=== PATIENT | female | born 1965 | race Caucasian/White ===

== ENCOUNTER 2020-02-26 11:07 | Day surgery (SDC) | payer OTHER, SELFPAY ==
[2020-02-26] VITALS (9 sets, daily range): BP systolic 120–145; BP diastolic 60–81; PULSE 70–82; RESP 16–18; TEMP 36.7; O2SAT 96–100
[2020-02-26 10:13] LABS: MANUAL DIFF FLAG NO
[2020-02-26 10:17] LABS: Basophils Absolute Auto 0.1 X10*3/uL (0.0-0.2); Basophils Percent Auto 1.1 % (0-2); Eosinophils Absolute Auto 0.3 X10*3/uL (0.0-0.4); Eosinophils Percent Auto 4.5 % (0-4); Hematocrit 39.1 % (37-47); Hemoglobin 12.8 g/dl (12.0-16.0); Imm Gran Abs Auto 0.01 X10*3/uL (0.00-0.03); Imm Gran Pct Auto 0.2 % (0.0-0.4); Lymphocytes Absolute Auto 1.4 X10*3/uL (1.2-4.9); Lymphocytes Percent Auto 24.9 % (20-40); Mean Corpuscular HGB Conc 32.7 g/dl (31.0-35.0); Mean Corpuscular Hemoglobin 29.6 pg (27.0-33.0); Mean Corpuscular Volume 90.5 fL (80-98); Mean Platelet Volume 9.1 fL (9.4-12.3); Monocytes Absolute Auto 0.4 X10*3/uL (0.1-1.2); Monocytes Percent Auto 6.6 % (2-11); Neutrophils Absolute Auto 3.5 X10*3/uL (2.0-8.3); Neutrophils Percent Auto 62.7 % (45-73); Platelet Count 267 X10*3/uL (160-400); Red Blood Count 4.32 X10*6/uL (4.20-5.50); Red Cell Distribution Width 13.1 % (11.0-16.0); White Blood Count 5.6 X10*3/uL (4.8-10.8)
[2020-02-26 10:27] LABS: INTERNATIONAL NORM RATIO 0.9 (0.9-1.1); Prothrombin Time 11.2 SEC (10.8-13.0)
[2020-02-26 10:30] LABS: Partial Thromboplastin Time 30.3 SEC (24.1-38.0)
--- NOTE | 2020-02-26 11:00 | FL_ITS ---
EXAMINATION: XR LUMBAR PUNCTURE CLINICAL INFORMATION: Fluoroscopy-guided lumbar puncture. COMPARISON: None. TECHNIQUE: Following explaining fluoroscopy-guided lumbar puncture procedure, benefits and risks, a written consent was obtained. Patient was placed prone on the fluoroscopy table and the L4-L5 disc level is marked on the skin. The marked site was cleaned and draped in the usual sterile manner. 1% lidocaine was injected at the puncture site. A 22-gauge needle was advanced from the skin intrathecally at the L4-L5 disc level. There is very slow CSF flow seen, hence this level was abandoned and needle with stylet was then removed. 1% lidocaine was administered at the L3-L4 disc level and a 20-gauge spinal needle was advanced from a left-side approach intrathecally. After observing CSF return, patient was quickly placed in the left lateral view and opening CSF pressure was obtained. CSF was collected in 4 test tubes as recommended by the referring physician. Postprocedure stylet was reintroduced and needle withdrawn. Complete hemostasis was achieved at the puncture site. Sterile Band-Aid dressing applied at the puncture site. Patient tolerated the procedure extremely well. Initially patient was very nervous for which Ativan was prescribed by the referring physician. FINDINGS: On the AP and lateral views of the lumbar spine, the vertebral heights and alignment were maintained. The disc spaces were maintained. Initial failed attempt of lumbar puncture at L4-L5; successful lumbar puncture at the L3-L4 disc level was obtained. The opening CSF pressure was 7. Approximately 10 mL of CSF was collected in 4 test tubes. FLUOROSCOPY TIME: 1.4 minutes. DOSE AREA PRODUCT: 8.74 uGy-m2 (microgray-meter squared). FL/FL guided lumbar puncture LP IMPRESSION: Successful fluoroscopy-guided lumbar puncture performed without immediate complications. CSF collected was sent to lab as requested by the physician.
[2020-02-26 12:11] LABS: Glucose, Whole Blood 138 mg/dL (60-115)
[2020-02-26 12:16] LABS: Glucose, Whole Blood 138 mg/dL (60-115)
--- NOTE | 2020-02-26 13:52 | PC.NURSE ---
1342- PT CHECKED OWN BLOOD SUGAR WITH OWN SUPPLIES AND IT IS 176. LUNCH ORDERED AND PT WILL COVER WITH OWN INSULIN ONCE MEAL DELIVERED
[2020-02-26 14:05] LABS: CSF Appearance Clear, Colorless; CSF Tube # 3
--- NOTE | 2020-02-26 14:10 | PC.NURSE ---
1406 PT GAVE SELF OWN INSULIN 4 UNITS RLQ OF ABD, START EATING MEAL REMAINS FLAT SUPINE 1 PILLOW
[2020-02-26 14:20] LABS: Glucose CSF 91 mg/dL; Total Protein CSF 38.2 mg/dL (15-45)
[2020-02-26 14:48] LABS: Appearance CSF CLEAR; Color CSF COLORLESS
[2020-02-26 14:49] LABS: CSF Tube # 4; CSF Volume 2.5 ML; Red Blood Cell CSF 13 MM*3; White Blood Cell CSF 0 MM*3
== END 2020-02-26 16:19 | disposition home or self-care (01) ==
LOC: HO.SSS 11:07
PROVIDERS: Radiology Diagnostic Radiology; PCP Nurse Practitioner Family; Visit Provider Psychiatry & Neurology Neurology
PROC: 009U3ZZ Drainage of Spinal Canal, Percutaneous Approach (ICD-10-PCS; CPT 62270; principal; 2020-02-26 11:00)
DX: F03.90 Unspecified dementia, unspecified severity, without behavioral disturbance, psychotic disturbance, mood disturbance, and anxiety (principal); E11.9 Type 2 diabetes mellitus without complications; Z79.4 Long term (current) use of insulin
CPT/HCPCS: 36415; 62328; 82172; 82542; 82945; 82947; 84157; 85025; 85610; 85730; 86255; 89051

== ENCOUNTER 2023-02-20 15:41 | Outpatient (REF) | payer OTHER, SELFPAY ==
[2023-02-20 15:52] LABS: MANUAL DIFF FLAG NO
[2023-02-20 17:40] LABS: Basophils Absolute Auto 0.1 X10*3/uL (0.0-0.2); Basophils Percent Auto 0.7 % (0-2); Eosinophils Absolute Auto 0.4 X10*3/uL (0.0-0.4); Eosinophils Percent Auto 4.9 % (0-4); Hematocrit 38.5 % (37.0-47.0); Hemoglobin 12.6 g/dl (12.0-16.0); Imm Gran Abs Auto 0.02 X10*3/uL (0.00-0.03); Imm Gran Pct Auto 0.2 % (0.0-0.4); Lymphocytes Absolute Auto 1.6 X10*3/uL (1.2-4.9); Lymphocytes Percent Auto 19.9 % (20-40); Mean Corpuscular HGB Conc 32.7 g/dl (31.0-35.0); Mean Corpuscular Hemoglobin 29.4 pg (27.0-33.0); Mean Platelet Volume 10.1 fL (9.4-12.3); Monocytes Absolute Auto 0.4 X10*3/uL (0.1-1.2); Monocytes Percent Auto 5.4 % (2-11); Neutrophils Absolute Auto 5.5 x10*3/uL (2.0-8.3); Neutrophils Percent Auto 68.9 % (45-73); Platelet Count 187 X10*3/uL (160-400); Red Blood Count 4.28 X10*6/uL (4.20-5.50); Red Cell Distribution Width 12.4 % (11.0-16.0)
[2023-02-20 17:55] LABS: Anion Gap 12 (12-20); Blood Urea Nitrogen 15 mg/dL (9-16); Calcium 9.5 mg/dL (8.4-10.2); Carbon Dioxide 29 mmol/L (22-29); Chloride 105 mmol/L (96-108); Estimated Glomerular Filt Rate 54; Glucose Random 145 mg/dL (60-115); Potassium 4.8 mmol/L (3.3-5.1); Sodium 141 mmol/L (135-145)
[2023-02-20 18:06] LABS: Thyroid Stimulating Hormone 2.05 uIU/mL (0.32-4.0)
== END 2023-02-20 15:42 | disposition home or self-care (01) ==
LOC: HO.LAB 15:41
PROVIDERS: PCP Internal Medicine; Visit Provider Psychiatry & Neurology Neurology
DX: G31.84 Mild cognitive impairment of uncertain or unknown etiology (principal)
CPT/HCPCS: 36415; 80048; 84443; 85025

== ENCOUNTER 2024-12-04 15:38 | Outpatient (AMB) | payer OTHER, SELFPAY ==
--- OUTSIDE RECORDS SUMMARY | 2023-08-11 10:40 | XMS_ITS ---
Author Organization [employer] Address [address] [place] [address] Care Team Providers Care Acid Pump Operator Name Role Phone COLTEN Don, CHAVO Primary Care Provider Nelda Sweeney [phone] REASON FOR VISIT ULTRA - FIBROIDS ? ENLARGING Encounters Encounter Location Date Provider Diagnosis [facility] [employer] [facility] [address] [place] [address] 08/11/2023 Nelda Post Plan Of Treatment No Information Progress Notes * ERIC OTOOLEDOB:1965 (59 yo F)Acc No.[id number]:08/11/2023 PROGRESS NOTES Patient: ERIC MIRANDA Appointment Provider: Randy Post M.D. :1965 A ge:58 Y S ex:Female Date:08/11/2023 [facility] [facility] Pcp:CHAVO ABEL M.D. Subjective: * Chief Complaints: * 1 . ULTRA - FIBROIDS ? ENLARGING. * Medical History: Objective: * Vitals: Assessment: Plan: * Treatment: * Images: Billing Information: * Visit Code: * Procedure Codes: * Electronic signature of Rolly Post MD on 12/04/2024 at 05:53 PM EDT Sign off status: Pending * Appointment Provider: Randy Post M.D. Date: 08/11/2023 Generated for Sohan hinojosa/Rigo/Tyler on: 0 12/04/2024 05:53 PM EDT
--- OUTSIDE RECORDS SUMMARY | 2023-10-02 11:00 | XMS_ITS ---
Author Organization [employer] [facility] Address [address] [address] Care Team Providers Care Public Speaking Teacher Name Role Phone CHAVO ABEL M.D. 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 :1965 A ge:58 Y S ex:Female Date:10/02/2023 [address] [facility] Pcp:CHAVO ABEL M.D. Subjective: * Chief Complaints: * 1 . Annual AUTOMOBILE BRAKES BONDER Physical. * Medical History: D iabetes Type I, Other specified abnormal uterine and vaginal bleeding, Menopausal and female climacteric states, Unspecified dementia without behavioral disturbance, Other specified irregular menstruation, Leiomyoma of uterus, unspecified, Unspecified lump in breast, Inconclusive mammogram, Human metapneumovirus pneumonia, Hormone replacement therapy, Postmenopausal atrophic vaginitis, Unspecified dementia without behavioral disturbance, Mammographic extreme density, bilateral breasts. * Supervisor Wet Pour History: G ravida/ Para 1 /. S exual activity c urrently sexually active. L ast Pap Smear: NIL, NEG HPV, 10/03/16 NIL, NEG HPV, 2014, neg. M ammogram: > 75% density, 09/20/21 > 75% density, 08/04/20 > 75% density, 2014. L MP and menses 2 018. B irth Control: n one. C olonoscopy n o. B one Density: (Pending Report) 2014. * OB History: T otal pregnancies 1 . T otal living children 1 . C -section(s) 1 . * Allergies: S ulfa Antibiotics: Allergy. Objective: * Vitals: Assessment: Plan: * Treatment: * Images: Billing Information: * Visit Code: * Procedure Codes: * Electronic signature of Rolly Post MD on 12/04/2024 at 05:53 PM EDT Sign off status: Pending * Appointment Provider: Randy Post M.D. Date: 0 10/02/2023 Generated for Sohan hinojosa/Rigo/Marioitting on: 12/04/2024 05:53 PM EDT
--- OUTSIDE RECORDS SUMMARY | 2024-08-01 10:40 | XMS_ITS ---
Author Organization [employer] [facility] Address [address] [address] Care Team Providers Care Drywall Sprayer Name Role Phone CHAVO ABEL M.D. 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 :1965 A ge:59 Y S ex:Female Date:08/01/2024 [address] Pcp:CHAVO ABEL M.D. Subjective: * Chief Complaints: * 1 . 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 * Medical History: Objective: * Vitals: Assessment: Plan: * Treatment: * Images: Billing Information: * Visit Code: * Procedure Codes: * Electronic signature of Rolly Post MD on 12/04/2024 at 05:53 PM EDT Sign off status: Pending * Appointment Provider: Randy Post M.D. Date: 0 08/01/2024 Generated for Printi ashish/Faxing/eTransmitting on: 0 12/04/2024 05:53 PM EDT
--- NOTE | 2024-12-04 15:54 | MHC.OFFVIS ---
Intake Visit Reasons: F/u Allergies No Known Allergies Allergy (Verified 02/25/20 10:26) Medication List - Last Reconciled 12/04/24 by Alex Linares MD alendronate 70 mg PO QWEEK alprazolam 0.5 mg PO BEDTIME PRN atorvastatin 40 mg PO DAILY calcium carbonate 600 mg PO BID duloxetine 20 mg PO ONCE estradiol 0.01%(0.1mg/gram) 1 g vaginal 2XW folic acid 1 mg PO DAILY hydroxychloroquine 200 mg PO DAILY insulin aspart U-100 (Novolog FlexPen U-100 Insulin aspart) 2 - 4 units subcut TID methenamine hippurate 1 g PO BID HPI Comments Details: No Sz. Memory is pretty good and appears stable. Having trouble falling asleep and staying asleep for 3-4 yrs, worse lately. Wakes up tired. She had 14 years of formal education, earning an associates degree and also got certification in [employer]. She worked in [employer] for 28 years. 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 She has not been driving for last few years after getting lost while driving home. She is having lab work done later today. ?Was diagnosed with Sjogren's disease. finds everything done at home properly and on time. Keeps getting UTI frequently and apparently has trouble clearing it. Occasional wakes up with no energy and stays in bed for 2-3 days. Some days she is able to do most things. Some days she feels great and can function well. Has smell and taste problems off and on. Executive function is still not totally normal. She is multitasking better. She had two syncopal episodes, cause unknown, and had hip fracture. Now has her appetite back. She saw Dr. Abreu in [place] as part of workup for dementia [facility] and the [place] encephalopathy panel for autoimmune disease. 2023 Brain PET was negative for amyloid. She had hip fracture of the femur and a hip dislocation and had surgery at [facility] and was transferred to rehabilitation. She is unable to work and is not going to be able to return to work. Lot of anxiety and depression. She has a history of type 1 diabetes since age 22, not very well controlled in spite of an insulin pump, lupus for 5 years in her 20s, now in remission and couple of seizures related to hypoglycemia. 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 She's having trouble falling asleep and if she doesn't take the trazodone she cannot sleep to 3 AM. When she does take the trazodone at 9:00 she is very groggy in the morning. She feels that her body is very achy. She's become more accident prone. Her depression is under control. She feels that she is not as clear headed at times. On one occasion in Nov 2018, she could not remember how to get home from a side road and took 15 minutes to get back. [facility] Medical History (Updated 12/04/24 @ 16:09 by Alex Linares MD) Sjogren's disease Seizure Systemic lupus erythematosus (SLE) in remission Depression Diabetes mellitus MCI (mild cognitive impairment) with memory loss Social History (Updated 09/10/24 @ 15:14 by Rachele Valdez MA) Alcohol intake: never Patient Tobacco Use Status: Never used Tobacco Review of Systems Const Details: Sleep:? Difficulty getting to sleep?admits.? Difficulty maintaining sleep?denies?.? Urge to move legs?admits.? Teeth grinding?admits.? Shouting or Kicking during sleep?denies.? Abnormal behavior during sleep?denies.? Excessive sleep?denies.? Snoring?denies.? Daytime sleepiness?denies.? ?? General/Constitutional:? Change in appetite?denies.? Chills?denies.? Fatigue?admits.? Fever?denies.? Weight gain?denies.? Weight loss?denies.? ?? Respiratory:? Shortness of breath?denies.? Chest pain?denies.? Cough?denies.? ?? Cardiovascular:? Chest pain at rest?denies.? Chest pain with exertion?denies.? Claudication?denies.? Dizziness?denies.? Fluid accumulation in the legs?denies.? Irregular heartbeat?denies.? Palpitations?denies.? ?? Gastrointestinal:? Abdominal pain?denies.? Constipation?denies.? Diarrhea?denies.? Difficulty swallowing?denies.? Heartburn?denies.? Nausea?denies.? Rectal bleeding?denies.? ?? Genitourinary:? Frequent urination?denies.? Urgency?denies.? Incontinence?denies.? Erectile Dysfunction?denies.? ?? Musculoskeletal:? Neck pain?denies.? Back pain?denies.? Muscle aches?admits.? Painful joints?admits.? Sciatica?denies.? Weakness?admits.? ?? Neurologic:? Difficulty swallowing?denies.? Balance difficulty?denies.? Coordination?normal.? Difficulty speaking?denies.? Dizziness?denies.? Fainting?denies.? Gait abnormality?denies.? Headache?denies.? Loss of strength?denies.? Loss of use of extremity?denies.? Low back pain?denies.? Memory loss?admits. Confusion.? Seizures?denies.? Tics?denies.? Tingling/Numbness?denies.? Transient loss of vision?denies.? Tremor?denies.? ?? Psychiatric:? Anxiety?denies.? Auditory/visual hallucinations?denies.? Delusions?denies.? Depressed mood?admits.? Stressors?admits.? Substance abuse?denies.? Suicidal thoughts?denies.?? Physical Exam Neuro Other: Neurological: ? Abnormal neurological findings:?MMSE 30/30, MoCA 24/30 with MIS 10/15, Functional Activities Questionnaire 10.? Mental Status:?alert and oriented X 3,?Normal attention, orientation, memory and affect.? Cranial Nerves:?Pupils are equal, round and reactive to light. Fundoscopy shows normal disc bilaterally. External occular muscles are intact. Visual feng are full, no ptosis. Face is symmetrical, no facial weakness or droop. Facial sensations are normal. Tongue protrudes in midline. Palate elevates symmetrically. Shoulder shrugging is normal..? Motor Examination:?Normal muscle tone, bulk and strength,?No atrophy or fasciculations,?No drift of the extended upper extremities,?Deep tendon reflexes are 2+?,?Plantars are flexor?.? Straight Leg Raising:?90 degrees.? Sensory Exam:?Normal light touch, temperature, pinprick, vibration and joint-position sensations?,?Rhomberg sign is absent.? Coordination:?no ataxia,?no titubation,?ytpltt-ua-bnbb, stbk-aqyh-opno test and rapid alternating movements were normal.? Gait Exam:?Within normal limits.? Cerebellar Signs:?Aknftr-vx-plko and zsvc-ky-pije is normal,?no dysdiadochokinesia?.? Extrapyramidal System:?No tremor, rigidity with normal facial expressions,?No bradykinesia, no bradyphrenia. Normal arm swing and posture. No propulsion or retropulsion.? Speech:?Normal,?no dysphasia or dysarthria..? Mini Mental Status Exam: ? Level of Consciousness:?Alert.? Orientation:?Knows correct year, month, date, day and season,?Knows correct city, county and state. Knows correct location and floor.? Registration:?Able to register 3 objects.? Attention:?Serial 7's performed accurately.? Recall:?Able to recall 3 out of 3 objects.? Language:?Normal spontaneous speech, fluency, repetition,naming, comprehension, reading and writing.? Total Score:?30/30.? Assessment & Plan Assessment & Plan (1) MCI (mild cognitive impairment) with memory loss: Comment: 05/08/19 EEG-mild diffuse slowing 7.5-8 HZ. Labs normal. 02/26/24 Amyloid PET shows no significant amyloid deposit 05/19/19 MRI: Mild generalized cerebral and cerebellar volume loss. Neuropsych testing consistent with MCI with a large component of anxiety and depression that could be impacting her abilities greatly. Had side effects of Donepezil, Memantine, A1c is 7.2 09/2023 MRI reviewed: Mild volume loss . Bilateral deep white matter posterion white matter hyperintensities. 2019 [place] encephalopathy panel on CSF was normal ABSP2Y8 BETA AMYLOID 42/40 RATIO AND APOE PANEL, CSF ABETA 42 2398 pg/mL ABETA 40 40197 pg/mL ABETA 42/40 RATIO 0.20 [L] > or = 0.25 Low Risk 0.21 to 0.24 Medium Risk < or = 0.20 High Risk Code(s): G31.84 - Mild cognitive impairment of uncertain or unknown etiology Category: Medical (2) Seizure: Comment: mostly related to hypoglycemia. No recurrence Code(s): R56.9 - Unspecified convulsions Category: Medical (3) Depression: Code(s): F32.A - Depression, unspecified Category: Medical Plan Continue current meds. Try Melatonin 4-6 mg Coding Level of Care Code Est Pt Level 4 (40312) Diagnoses MCI (mild cognitive impairment) with memory loss G31.84 Seizure R56.9 Depression F32.A
--- OUTSIDE RECORDS SUMMARY | 2024-12-04 17:53 | XMS_ITS | Patient Health Record ---
Author Organization [facility] Address [address] [address] Care Team Providers Care Spanish Medical Interpreter Name Role Phone CHAVO ABEL M.D. Primary Care Provider Nelda Sweeney Unavailable [phone] Allergies Allergen (clinical drug ingredient) Drug/Non Drug Allergy documented on EMR Reaction Allergy Type Onset Date Status Substance with sulfonamide structure and antibacterial mechanism of action (substance) Sulfa Antibiotics Unknown Drug Allergy Active Reason For Referral No Information Medications Medication SIG (Take, Route, Frequency, Duration) Notes Start Date End Date Status Progesterone 100 MG TAKE 2 CAPSULES BY M OUTH AT BEDTIME; Duration: 90 Active Tolterodine Tartrate ER 4 MG 1 capsule Orally Once a day; Duration: 30 day(s) Active Methenamine Hippurate 1 GM 1 tablet Oral ly Twice a day; Duration: 10 day(s) Active Alendronate Sodium 70 MG 1 tablet 30 min utes before the first food, beverage or medicine of the day with plain water Orally; Duration: 30 day(s) Active Estradiol 0.05 MG/24HR APPLY 1 PATCH TO SKIN TWICE A WEEK FOR 90 DAYS; Duration: 84 Active Alive Once Daily Womens 50+ - as directed Orally Active Vagifem 10 MCG 1 tablet Vaginal Thr ee times a Week; Duration: 90 days Active Prometrium 100 MG 1 capsule at bedtime Orally TWICE DAILY; Duration: 90 days 05/11/2022 Active Atorvastatin Calcium 40 MG 1 tablet Oral ly Once a day Active Basaglar KwikPen Act alicia ALPRAZolam 1 MG 1 tablet Orally Bedtime Active Folic Acid 1 MG 1 tablet Orally Once a day Active NovoLOG FlexPen Acti ve Estradiol Vaginal Cream 0.01% 1 Gram to the affected area Vaginal/Vulva Twice a week; Duration: 90 Days 09/23/2022 Active Vitamin D3 25 MCG (1000 UT) 1 tablet Ora lly Once a day; Duration: 30 day(s) Active Conowingo 3 1000 MG 1 capsule Orally Onc e a day; Duration: 30 day(s) Active Fiber - as directed Orally A ctive Social History Tobacco Use: Social History Observation Description Date Details (start date - stop date) Never Smoker NA - NA Tobacco Use/Smoking Question Answer Notes Are you a nonsmoker Alcohol Screen (Audit-C) Question Answer Notes Did you have a drink contain ing alcohol in the past year? Yes How often did you have a dri nk containing alcohol in the past year? Monthly or less (1 point) How many drinks did you have on a typical day when you were drinking in the past year? 1 or 2 drinks (0 point) How often did you have 6 or more drinks on one occasion in the past year? Never (0 point) Points 1 Interpretation Negative Sexual History Question Answer Notes Had sex in the past 12 months (vaginal, oral, or anal)? Yes with Men only Prevention strategies discussed: Other Problems Problem Type SNOMED Code ICD Code Onset Dates Problem Status W/U Status Risk Notes Problem Postmenopausal atrophic vaginitis (19999072) Postmenopausal atrophic vaginitis (N95.2) Active confirmed Problem Dementia (79204683) Unspecified dementia without behavioral disturbance (F03.90) Active confirmed Problem Irregular Menstruation (74206457) Other specified irregular menstruation (N92.5) Active confirmed Problem Abnormal vaginal bleeding (462713699) Other specified abnormal uterine and vaginal bleeding (N93.8) Active confirmed Problem Menopause (444333613) Menopausal and female climacteric states (N95.1) Active confirmed Problem Dyspareunia (26623316) Unspecified dyspareunia (N94.10) Active confirmed Encounters Encounter Location Date Provider Diagnosis [place] [address] [employer] [address] [address] 04/15/2024 Nelda [facility] [address] [address] [address] 07/16/2024 Nelda Post Plan Of Treatment Pending Test Test Name Order Date Ultrasound : Breast, right 10/03/2016 MAMMOGRAM, SCREENING 10/03/2016 Urinalysis 07/17/2020 Urinalysis 09/16/2021 Ultrasound : Sono Hystergram 06/21/2016 ENDOMETRIAL BX 06/21/2016 THIN PREP,HPV,LORETTA IF HPV+ (>29YR)(SCRN) 10/03/2016 BONE DENSITY 07/17/2020 MM Digital Mammo Screening 10/03/2016 MM Digital Mammo Screening 09/23/2022 Insurance Providers Payer Name Payer Address Payer Phone Subscriber Number Group Number Insured Name Patient Relationship to Insured Coverage Start Date Coverage End Date KELLY [address] [facility] [place] [address] [phone] [id number] TREVON OTOOLE Spouse - patient is the spouse of the insured Medical (General) History Medical History History ICD Code Diabetes Type I Other specified abnormal uterine and vag inal bleeding N93.8 Menopausal and female climacteric states N95.1 Unspecified dementia without behavioral disturbance F03.90 Other specified irregular menstruation N 92.5 Leiomyoma of uterus, unspecified D25.9 Unspecified lump in breast N63 Inconclusive mammogram R92.2 Human metapneumovirus pneumonia J12.3 Hormone replacement therapy Z79.890 Postmenopausal atrophic vaginitis N95.2 Unspecified dementia without behavioral disturbance F03.90 Mammographic extreme density, bilateral breasts R92.343 Surgical History Surgery Date(Month/Year) Tonsillectomy Sinus Surgery Right Ankle Fracture Endometrial Biopsy 07/2016 Fracture Femur/Dislocated Right Hip 12/03 Hospitalization History Reason Date(Month/Year) See Surgical Hx Heart Palpitations 06/2020
--- OUTSIDE RECORDS SUMMARY | 2024-12-04 17:53 | XMS_ITS ---
Continuity of Care Document (CCD) Created on: December 04, 2024 Sahara Salgado External Reference #: [id number] : [id number] Sex: Female Author Organization [facility] Address [address] [place] [address] Phone [phone] Care Team Providers Care Air Force Pilot Name Role Phone Israel Cheng M.D. Care Team Information Receiv er [phone] Problems Active Problems Provider Date Type 1 diabetes mellitus Joanne Noble M.D. Onset: 02/08/2022 Insomnia Joanne Noble M.D. Ons et: 02/08/2022 Anxiety Joanne Noble M.D. Ons et: 02/08/2022 Mild cognitive disorder Joanne Noble M.D. Onset: 02/08/2022 Osteoporosis Joanne Noble M.D. Ons et: 02/08/2022 Compression fracture of vert ebral column Joanne Noble M.D. Onset: 02/08/2022 Pathological fracture of right hip Joanne Bledsoe M.D. Onset: 02/08/2022 Systemic lupus erythematosus Joanne whitney M.D. Onset: 02/08/2022 Neurogenic bladder Joanne Noble M.D. Onset: 02/08/2022 Recurrent urinary tract infection Joanne Simeon M.D. Onset: 02/08/2022 Migraine Joanne Noble M.D. 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 06/13/2024 Z79.4 Lantus Cfzhconh126Ztll/ML Solution Pen-Inject Inject 15 To 17 Units AT Bedtime 15units E10Fartun Noble M.D. 08/30/2023 Baqsimi One Romb2co/Dose Powder spray into nostril as needed for low sugar reaction 1units Joanne Noble M.D. 11/23/2022 BD Kpcj0Ljl Use To Inject Skin 5-7 Times Daily 600units E10Fartun Noble M.D. 05/06/2022 Contour Next Blood Glucose TestStrips use to test finger stick blood sugar 3 (three) times a day dx: e10.9 105units E10Fartun Noble M.D. 01/10/2022 Xhpvrcvre994hw Tablets 1 by mouth every day Unknown Methenamine Glmqzotvi3kg Tablets 1 by mouth twice a day Joanne Noble M.D. Amitriptyline HHT89mo Tablets take 1 tablet at bedtime 90tabs Joanne Noble M.D. Vitamin S8791uz Tablets 1 by mouth every day Joanne Noble M.D. Vitamin Q618Sylf Capsules 1 by mouth every day Joanne Noble M.D. Multivitamin Adults 50+Adlt 50+ Tablets 1 by mouth every day Joanne Noble M.D. Culturelle Digestive Daily ProbioticCapsules Take 1 Capsule (Oral) AT Bedtime For 15 Days Unknown Acuvcmdirrl858yk Tablets 1 qd x week q month Arnold Andrews MD Fedzjygf894249Lrzw Tablets Take 2 Tablets By Mouth Twice Daily Arnold Andrews MD Blhriwsjqcmr844km Capsules Take 1 Capsule By Mouth Twice Daily Nelda Post M.D. BD Pen Needle/Dimple 2ND Gen/32G X 5/32 32G X 4 mm Misc use to inject to skin 6 to 7 times a day 700units E10.9 Joanne Noble M.D. Estradiol0.05mg/24HR Patches Biweek 1 patch twice a week Nelda Post M.D. Eosbfyz44tkc Tablets Insert 1 Tablet Vaginally Three Times A Week Nelda Post M.D. Alendronate Ttstpj82yp Tablets Take 1 Tablet Every Week With Water Only AT Least 1/2 HR Before Breakfast 12tabs Joanne Noble M.D. Sumatriptan Egsovfmzd734xs Tablets Take as directed for migraines Unknown Atorvastatin Iihtjkv85cs Tablets Take 1 Tablet By Mouth Everyday AT Bedtime Unknown Folic Criq8hl Tablets Take 1 daily Unkno wn Duloxetine ZDP47pu Caps DR Part 1 qd Unknown Bljoqunfxd8hu Tablets Take 1 1/2 tabs at bedtime Unknown Vital Signs Date Vital Result Comment 04/22/2024 1:03pm BP Systolic 140 mmHg BP Diastolic 68 mmHg Heart Rate 75 /min Height 69 inches 5'9 Weight 146.25 lb BMI (Body Mass Index) 21.6 kg/m2 Results Test Acquired Date Facility Test Result H/L Range Note Glucose Fingerstick 04/22/2024 Inhouse Glucose Fingerstick 181 Hemoglobin A1c 04/22/2024 Inhouse Hemoglobin A1c 8.1% Comp. Metabolic Panel (14) 01/05/2024 [facility] Glucose 178 mg/dL High 70-99 BUN 10 mg/dL 6-24 Creatinine 0.98 mg/dL 0.57-1.0 0 eGFR 66 mL/min/1. 73 >59 BUN/Creatinine Ratio 10 9-23 Sodium 140 mmol/L 134-144 Potassium 4.4 mmol/L 3.5-5.2 Chloride 100 mmol/L 96-106 Carbon Dioxide, Total 25 mmol/L 20-29 Calcium 8.7 mg/dL 8.7-10.2 Protein, Total 6.3 g/dL 6.0-8.5 Albumin 4.2 g/dL 3.8-4.9 Globulin, Total 2.1 g/dL 1.5-4.5 Bilirubin, Total 0.4 mg/dL 0.0-1 .2 Alkaline Phosphatase 73 IU/L 44-121 Ast (Sgot) 21 IU/L 0-40 Alt (SGPT) 20 IU/L 0-32 Lipid Panel 01/05/2024 [facility] Cholesterol, Total 115 mg/dL 100-199 Triglycerides 73 mg/dL 0-149 HDL Cholesterol 61 mg/dL >39 VLDL Cholestero l Bryce 15 mg/dL 5-40 LDL Chol Calc (Nih) 39 mg/dL 0-99 LDL Calc Comment: TNP TSH Rfx on Abnormal to Free T4 01/05/2024 [facility] TSH Rfx on Abnormal to Free T4 3.060 uIU/mL 0.450-4. 500 Vitamin B12 01/05/2024 [facility] Vitamin B12 840 pg/mL 232-1245 Albumin/Creatini ne Ratio, Random Urine 01/05/2024 [facility] Creatinine, Urine 31.7 mg/dL Not Estab. Albumin, Urine <3.0 ug/mL Not Estab. Alb/Creat Ratio <9 mg/gcreat 0-29 1 Phosphorus 09/25/2023 [facility] Phosphorus 3.8 mg/dL 3.0-4.3 Vitamin D, 25-Hydroxy, Total 09/25/2023 [facility] Vitamin D, 25-Hydroxy, Total 126 ng/mL High 2 Magnesium 09/25/2023 [facility] Magnesium 1.8 mg/dL 1.6-2.3 PTH, Intact 09/25/2023 [facility] PTH, Intact 24 pg/mL 15-65 Albumin 09/25/2023 [facility] Albumin 4.4 g/dL 3.8-4.9 Calcium 09/25/2023 [facility] Calcium 9.1 mg/dL 8.7-10.2 Calcium 09/14/2023 [facility] Calcium <pending> Albumin 09/14/2023 [facility] Albumin <pending> Vitamin D 25 Hydroxy Esoterix 09/14/2023 [facility] Vitamin D 25 Hydroxy Esoterix <pending> PTH, Intact 09/14/2023 [facility] PTH, Intact <pending> Magnesium 09/14/2023 [facility] Magnesium <pending> Phosphorus 09/14/2023 [facility] Phosphorus <pending> Albumin/Creatini ne Ratio, Random Urine 09/08/2023 [facility] Creatinine, Urine 28.8 mg/dL Not Estab. Albumin, Urine <3.0 ug/mL Not Estab. Alb/Creat Ratio <10 mg/gcreat 0-29 3 Comp. Metabolic Panel (13) 09/08/2023 [facility] Glucose 172 mg/dL High 70-99 BUN 10 mg/dL 6-24 Creatinine 0.91 mg/dL 0.57-1.0 0 eGFR 73 mL/min/1. 73 >59 BUN/Creatinine Ratio 11 9-23 Sodium 140 mmol/L 134-144 Potassium 4.3 mmol/L 3.5-5.2 Chloride 102 mmol/L 96-106 Carbon Dioxide, Total 28 mmol/L 20-29 Calcium 8.1 mg/dL Low 8.7-10.2 Protein, Total 5.9 g/dL Low 6.0-8.5 Albumin 4.3 g/dL 3.8-4.9 Globulin, Total 1.6 g/dL 1.5-4.5 Bilirubin, Total 0.5 mg/dL 0.0-1 .2 Alkaline Phosphatase 85 IU/L 44-121 Ast (Sgot) 22 IU/L 0-40 Vitamin B12 09/08/2023 [facility] Vitamin B12 947 pg/mL 232-1245 TSH Rfx on Abnormal to Free T4 09/08/2023 [facility] TSH Rfx on Abnormal to Free T4 4.150 uIU/mL 0.450-4. 500 Lipid Panel 09/08/2023 [facility] Cholesterol, Total 102 mg/dL 100-199 Triglycerides 70 mg/dL 0-149 HDL Cholesterol 62 mg/dL >39 VLDL Cholestero l Bryce 15 mg/dL 5-40 LDL Chol Calc (Nih) 25 mg/dL 0-99 LDL Calc Comment: TNP Albumin/Creatini ne Ratio, Random Urine 08/30/2023 [facility] Creatinine, Urine 38.4 mg/dL Not Estab. Albumin, Urine <3.0 ug/mL Not Estab. Alb/Creat Ratio <8 mg/gcreat 0-29 4 Glucose Fingerstick 08/30/2023 [facility]house Glucose Fingerstick 198 Hemoglobin A1c 08/30/2023 Inhouse Hemoglobin A1c 8.4% Glucose Fingerstick 04/10/2023 Inhouse Glucose Fingerstick 149 Hemoglobin A1c 04/10/2023 Inhouse Hemoglobin A1c 7.7% Glucose Fingerstick 11/23/2022 Inhouse Glucose Fingerstick 227 Hemoglobin A1c 11/23/2022 Inhouse Hemoglobin A1c 8.3% Urinary Microalbumin 06/03/2022 [facility] Micro-Albumin <12.0 mg/L (<20) 5 Malb/Creat Ratio Unable t o calcul <SEE NOTE> MG/GM (0-20) 6 Urine Creat For Micro Albumin 27.2 mg/dL Glucose Fingerstick 06/03/2022 Inhouse Glucose Fingerstick 115 Hemoglobin A1c 06/03/2022 Inhouse Hemoglobin A1c 7.3% Glucose Fingerstick 02/08/2022 Inhouse Glucose Fingerstick 113 Hemoglobin A1c 02/08/2022 Inhouse Hemoglobin A1c 7.8% C-Peptide 01/27/2022 [facility] C-Peptide <0.1 Low 7 Glucose 01/27/2022 [facility] Glucose 137 mg/dL High (70-99) 1 Normal: 0 - 29 Moderately increased: 30 - 300 Severely increased: >300 2 Reference Range: All Ages: Target levels 30 - 100 3 Normal: 0 - 29 Moderately increased: 30 - 300 Severely increased: >300 4 Normal: 0 - 29 Moderately increased: 30 - 300 Severely increased: >300 5 The urine microalbum in test is designed to monitor renal function. When screening for Bence Flores proteinuria, urine electrophoresis is recommended. 6 Unable to calculate 7 Reference range: 1.1 to 4.4 Unit: ng/mL (NOTE) C-Peptide reference interval is for fasting patients. Test performed by [facility], [address] [place] [address] Procedures Date Code Description Status 10/24/2024 NSHOWOFF No Show Office Visit Complet ed 04/22/2024 85249 Glucose Monitoring Interpeta tion And Report Completed 01/10/2024 NSHOWOFF No Show Office Visit Complet ed 08/30/2023 46738 Glucose Monitoring Interpeta tion And Report Completed 04/10/2023 59688 Glucose Monitoring Interpeta tion And Report Completed 11/23/2022 06408 Glucose Monitoring Interpeta tion And Report Completed Medical Devices Description No Information Available Encounters Type Date Location Provider Dx Diagnosis Office Visit 04/22/2024 1:00p Main Office Joanne Noble M.D. E10.9 Type 1 diabetes mellitus without complications E10.65 Type 1 diabetes paul itus with hyperglycemia M81.0 Age-related osteopor osis w/o current pathological fracture Z79.4 FPC (current) use of insulin G31.84 Mild cognitive impai rment of uncertain or unknown etiology Assessments Date Code Description Provider 04/22/2024 E10.9 Type 1 diabetes mellitus without complications Joanne Noble M.D. 04/22/2024 E10.65 Type 1 diabetes mellitus with hyperglycemia Joanne Noble M.D. 04/22/2024 M81.0 Age-related oste oporosis without current pathological fracture Joanne Noble M.D. 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 04/22/2024 G31.84 Mild cognitive i mpairment of uncertain or unknown etiology Joanne Noble M.D. Plan of Treatment Future Appointment(s):* 03/21/2025 3:15 pm - Joanne Noble M.D. at Main Office 02/08/2022 - Joanne Noble M.D.* E10.9 Type 1 diabetes mellitus without complications * M81.0 Age-related osteoporosis without current pathological fracture * G31.84 Mild cognitive impairment of uncertain or unknown etiology Functional Status Description No Information Available Mental Status Description No Information Available Referrals Description No Information Available
--- OUTSIDE RECORDS SUMMARY | 2024-12-04 17:53 | XMS_ITS ---
Author Organization [facility] on Care Team Providers Care Turpentiner Name Role Phone Sondra Daniels Unavailable Unavailable Alberta Flores Unavailable Unavailable Toya Colbert Unavailable Unavailable Marialuisa Roman Unavailable Unavailable Consuelo Scanlon Unavailable Unavailable Alice Hollingsworth Unavailable Unavailable Allergies and adverse reactions Code CodeSystem Substance Reaction Severity StartDate Concern Status 597134953 SNOMED CT Sulfa Antibiotics Unknown 12/24/2021 active Bactrim Unknown 12/24/2021 active Care Team Name Role Address Phone Organization Dates Toya Colbert PCP [address] [place] [address], [phone], [facility] (Office): : [facility] [place] 12/25/2021 - 12/26/2021 Sondra Daniels [address], [place], [facility], [place] (Office): [phone] [facility] [place] 12/25/2021 - 12/26/2021 Alberta Flores [address] [place] [address], [phone], [facility] (Office): [facility] [place] 12/25/2021 - 12/26/2021 Marialuisa Roman [address] [place] [address], [phone], [place] (Office): [facility] [place] 12/25/2021 - 12/26/2021 Consuelo Capo [address] [place] [address], [phone], [place] (Office): [facility] 12/25/2021 - 12/26/2021 Alice Hollingsworth [address] [place] [address], [phone], [place] (Office): : [facility] 12/25/2021 - 12/26/2021 Immunizations Immunization Status Vaccine Details Vaccine Code CodeSystem Hung e Notes SARS-COV-2 (COVID-19) completed SARS-COV-2 (COVID-19) vaccine, mRNA, spike protein, LNP, preservative free, 50 mcg/0.5 mL dose Mfg: Moderna Step 2 of Multi-step with next step required 221 CVX created date: 12/24/2021 administered date: 06/08/2020 SARS-COV-2 (COVID-19) completed SARS-COV-2 (COVID-19) vaccine, mRNA, spike protein, LNP, preservative free, 50 mcg/0.5 mL dose Mfg: Moderna Step 1 of Multi-step with next step required 221 CVX created date: 12/24/2021 administered date: 05/10/2020 SARS-COV-2 (COVID-19 BOOSTER) completed SARS-COV-2 (COVID-19) vaccine, mRNA, spike protein, LNP, preservative free, 50 mcg/0.5 mL dose Mfg: Moderna 221 CVX created date: 12/24/2021 administered date: 10/13/2020 Mental Status Section Date Assessment Total Score Description 12/25/2021 CAM 0 No delirium ind icated Problems Problem # Description Date of onset Resolved Date Code CodeSystem Concern Status 1 HYPERKALEMIA 01/19/[address] activ e 2 TYPE 1 DIABETES MELLITUS WITHOUT COMPLICATIONS 12/25/[address] active 3 ALZHEIMER'S DISEASE WITH EARLY ONSET 12/24/[address] active 4 CONTUSION OF LEFT SHOULDER, SUBSEQUENT ENCOUNTER 12/24/[address] active 5 RETENTION OF URINE, UNSPECIFIED 12/24/[address] active 6 UNSPECIFIED PROTEIN-CALORIE MALNUTRITION 12/24/[address] active 7 URINARY TRACT INFECTION, SITE NOT SPECIFIED 12/24/[address] active Reason for Referral No Reasons for Referral Entered Social History Social History Observation Description Start Date End Date Code Code System Current Smoking Status Tobacco smoking consumption unknown 212572353 SNOMED CT Sex Assigned At Female 1965 75760-4 [facility] Gender Identity Sexual Orientation Vital Signs Code Code System Vitals Name Values and Units Timing Information 81558-7 [facility] Pain Level Value=0.0 12/25/2021 2339-0 [facility] Blood Sugar Wzhzs=477.0 Units=mg/dL 12/25/2021 9279-1 [facility] Respiratory Rate Value=18.0 Units=/m in 12/25/2021 8462-4 [facility] Blood Pressure-Diastolic Value=72 Un its=mmHg 12/25/2021 8480-6 [facility] Blood Pressure-Systolic Freaa=981 Un its=mmHg 12/25/2021 8310-5 [facility] Body Temperature Value=97.9 Units= F 12/25/2021 8867-4 [facility] Heart rate Value=73.0 Units=/min 63397-7 [facility] O2 % BldC Oximetry Value=96.0 Units= % 12/25/2021 67838-0 [facility] Weight Ynkay=197.0 Units=Lbs 8302-2 [facility] Height Value=60.0 Units=Inches 12/25/2021
--- OUTSIDE RECORDS SUMMARY | 2024-12-04 17:53 | XMS_ITS | Encounter Summary ---
Author Organization [facility] Address [address] [place] [address] Phone Care Team Providers Care Information Technology Coordinator Name Role Phone Unavailable Primary Care Provider Unavailabl e Encounter Details Date Type Department Care Team (Late st Contact Info) Description 06/06/2022 Documentation Only [facility] [address] [place] [address] Allen Healy MD [address] [place] [address] Social History Tobacco Use Types Packs/Day Years Used Date Smoking Tobacco: Never Assessed Comments Unknown Sex and Gender Information Value Date Recorded Sex Assigned at Not on file Legal Sex Female 4:58 PM EST Gender Identity Not on file Sexual Orientation Not on file documented as of this encounter Plan of Treatment Not on file documented as of this encounter Visit Diagnoses Not on filedocumented in this encounter
--- OUTSIDE RECORDS SUMMARY | 2024-12-04 17:54 | XMS_ITS | Encounter Summary ---
Author Organization [facility] Address [facility] [employer] [facility] [address] [place] [address] Phone Care Team Providers Care Food Products Sales Representative Name Role Phone Tammi Slater NP Primary Care Provider Israel Cheng MD Primary Care Provider + Reason for Referral * Consultation (Elective) - Closed Specialty Diagnoses / Procedures Referred By Contmaster t Referred To Contact Neurology Diagnoses Mild cognitive impairment System, Provider Not In, [facility] [address] [address] Phone: tel: Referral ID Status Reason Start Date Expiration Date Visits Re quested Visits Authorized [id number] Closed 10/01/2019 09/30/2020 1 1 Encounter Details Date Type Department Care Team (Late st Contact Info) Description 10/01/2019 Transcribe Orders [facility] Department of Neurology [address] [place] [address], [address] Floor, [address] [place] [address] System, Provider Not In, [facility] [address] [address] Mild cognitive impairment (Primary Dx) Social History Tobacco Use Types Packs/Day Years Used Date Smoking Tobacco: Never Assessed Comments Unknown Sex and Gender Information Value Date Recorded Sex Assigned at Female 08/29/2019 1:40 PM EDT Legal Sex Female 1:32 PM EDT Gender Identity Female 08/29/2019 1:40 PM EDT Sexual Orientation Straight 08/29/2019 1: 40 PM EDT documented as of this encounter Plan of Treatment Scheduled Referrals Name Type Priority Associated Diagnoses Order Schedule Ambulatory referral to [facility] Neurology Outpatient Referral Routine Mild cognitive impairment Ordered: 10/01/2019 documented as of this encounter Visit Diagnoses Diagnosis Mild cognitive impairment- Primary Mild cognitive impairment, so stated documented in this encounter Care Teams Food Products Sales Representative Relationship Specialty Start Date End Date Tammi Slater SEMICONDUCTOR EQUIPMENT TECHNICIAN [address] [place] [address] PCP - General Nurse Practitioner 08/29/19 04/16/23 Israel Cheng MD [address] [place] [phone] [email or web address] PCP - General Internal Medicine 04/17/23 documented as of this encounter Additional Source Comments The information contained in this document represents components of the legal health record. It is not the complete legal health record.[facility]
--- OUTSIDE RECORDS SUMMARY | 2024-12-04 17:54 | XMS_ITS | Clinical Summary ---
Author Organization [facility] Address [address] [place] [address] Phone Care Team Providers Care Template Worker Name Role Echometer EngineerAlberto MD Primary Care Provider [phone] Surgical History Surgery Date Site/Laterality Comments SECTION PROCEDURE: HISTORICAL ANKLE SURGERY Right PROCEDURE: HISTORICAL ANKLE SURGERY; COMMENT: ORIF TONSILLECTOMY PROCEDURE: HISTORICAL TONSILLECTOMY CATARACT EXTRACTION 05/16/2013 Bilateral PROCEDURE: HISTORICAL CATARACT REMOVAL; COMMENT: with IOL OTHER SURGICAL HISTORY PROCEDURE: HISTORY OTHER; COMMENT: Deviated septum surgery x 2 Medical History Medical History Date Comments Mild cognitive impairment 10/07/2019 DX:Mil d cognitive impairment Anxiety 11/05/2019 DX:Anxiety Depression 11/05/2019 DX:Depression Rib fracture 11/05/2019 DX:Rib fracture; COMMENT: 05/30 CT Abd- Healing subacute fractures involving the posteriolateral Left 11th & 12th ribs Lung nodule 11/05/2019 DX:Lung nodule; COMMENT: RUL 4 mm ground glass nodule, No routine f/u required History of vertebral fracture 11/05/2019 DX :History of vertebral fracture; COMMENT: T 12 Insomnia 11/05/2019 DX:Insomnia Unintended weight loss 11/05/2019 DX:Uninte nded weight loss Diabetes mellitus type 1, uncomplicated ([facility] V24, [facility] V28) 10/07/2019 DX:Diabetes mellitus type 1, uncomplicated ([facility]); COMMENT: Endocrinology - Dr. 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 Family History Medical History Relation Name Comments No Known Problems Brother Diabetes Father Javed's Sarcoma , CAD, age 61 Other: Osteoarthritis Mother Hyperl ipidemia Alzheimer's disease Paternal Grandfather Alzheimer's disease Paternal Grandmother No Known Problems Sister No Known Problems Son Relation Name Status Comments Brother Alive Father Mother Alive Paternal Grandfather Paternal Grandmother Sister Alive Son Alive Social History Tobacco Use Types Packs/Day Years Used Date Smoking Tobacco: Never Smokeless Tobacco: Never Alcohol Use Standard Drinks/Week Comments Yes 0 (1 standard drink = 0.6 oz pur e alcohol) Comments Unknown Sex and Gender Information Value Date Recorded Sex Assigned at Not on file Legal Sex Female 6:46 PM EST Gender Identity Not on file Sexual Orientation Not on file Obstetrics History Plan of Treatment Health Maintenance Due Date Last Done Comments Breast Cancer Screening 1965 Diabetes: Annual GFR (Glomerular Filtration Rate) 1965 Diabetes: Annual Foot Exam 1974 Diabetes: Annual Retina Eye Exam 1974 Cervical Cancer Screening: Pap Smear 1985 DTaP,Tdap,and Td Vaccines (2 - Td or Tdap) 10/22/2015 10/21/2005 Cholesterol Screening (Lipid Panel) 02/12/2022 Colorectal Cancer Screening: Colonoscopy 02/12/2022 HIV Screening 02/12/2022 Hepatitis C Screening 02/12/2022 Osteoporosis Screening (Bone Density Screening) 02/12/2022 Social Influencers of Health Screening 02/12/2022 Diabetes: Annual Urine Albumin-Creatinine Ratio (uACR) 02/25/2022 Diabetes: Blood Sugar Control Test (HGBA1C) 02/25/2022 Depression Screening 03/13/2024 RSV Immunization Adult Patients (1 - Risk 60-74 years 1-dose series) 2024 COVID-19 Vaccine (8 - Moderna risk 2023- season) 2024 12/16/2023, 09/10/2023, 01/07/2023, Additional history exists Influenza Vaccine (#1) 2024 , 12/29/2022, 12/17/2021, Additional history exists Zoster Vaccines Completed 07/19/2018, 05/09/2018 Pneumococcal Vaccine: 50+ Years Completed 03/16/2022, 01/22/2016, 09/20/2006 HIB Vaccines Aged Out No longer eligi ble based on patient's age to complete this topic HPV Vaccines Aged Out No longer eligi ble based on patient's age to complete this topic Hepatitis A Vaccines Aged Out No long er eligible based on patient's age to complete this topic Hepatitis B Vaccines Aged Out No long er eligible based on patient's age to complete this topic IPV Vaccines Aged Out No longer eligi ble based on patient's age to complete this topic MMR Vaccines Aged Out No longer eligi ble based on patient's age to complete this topic Meningococcal ACWY Vaccine Aged Out N o longer eligible based on patient's age to complete this topic Meningococcal B Vaccine Aged Out No l onger eligible based on patient's age to complete this topic RSV Immunization Patients Under 20 months Aged Out No longer eligible based on patient's age to complete this topic Varicella Vaccines Aged Out No longer eligible based on patient's age to complete this topic Insurance MEDICARE [facility] Care Teams Template Worker Relationship Specialty Start Date End Date Alberto Carter MD [address] [place] [address] PCP - General Internal Medicine 03/01/24
--- OUTSIDE RECORDS SUMMARY | 2024-12-04 17:54 | XMS_ITS | Encounter Summary ---
Author Organization [facility] Address [id number] [place] [id number] Care Team Providers Care Tow Picker Name Role ToolerAlberto Carter MD Primary Care Provider [phone] Encounter Details Date Type Department Care Team (Late st Contact Info) Description 03/18/2024 Lab Requisition [facility] - Main Lab [address] [facility] [employer] [place] [address] Alem Sepulveda PA [address] [place] [address] Benign essential microscopic hematuria Social History Tobacco Use Types Packs/Day Years [...] on file documented as of this encounter Procedures Procedure Name Priority Date/Time Associated Diagnosis Comments AP OUTSIDE CONSULT Routine 03/01/2024 12 :00 AM EST Benign essential microscopic hematuria documented in this encounter Results * Anatomic pathology outside consult (03/01/2024 12:00 AM EST) Addendum Results of UroVysion fluorescence in situ hybridization (FISH) testing: CEP3: Normal CEP7: Normal CEP17: Normal LSI 9p21: Normal Interpretation: Normal profile Controls stained appropriately. Note: The results are intended as a screening device and should be interpreted in association with other clinical and pathological findings. 03/28/2024 10:13 AM EST [facility] Addendum electronically signed by Janes Fernandez MD on 03/28/2024 at 10:13 AM Final Diagnosis A. Urine, Voided, ([id number]): Negative for high grade urothelial carcinoma. Note: UroVysion testing to follow. 03/28/2024 10:13 AM [facility] Clinical Information Benign essential microscopic hematuria R31.1 Urine cytology/UroVysi on 03/28/2024 10:13 AM [facility] Gross Description A. Urine, Voided, ([id number]): Received one ThinPrep slide for cytology and one ThinPrep slide for UroVysion 03/28/2024 10:13 AM [facility] Disclaimer Unless otherwise specified, all tissue is 10% NB formalin fixed and paraffin embedded. Technical pathology services provided by [facility] [address] [facility] [address], [place] [address] (CLIA #[id number]/Lauren Hewitt MD, Executive Chef) 03/28/2024 10:13 AM [facility] Tissue Urine specimen from urethra / Unknown 03/01/2024 03/18/2024 1:49 PM EST us [facility] PATHOLOGY ORDERABLES Edite d Result - Final [facility] [address] [place] [address], documented in this encounter Visit Diagnoses Diagnosis Benign essential microscopic hematuria documented in this encounter Care Teams Tow Picker Relationship Specialty Start Date End Date Alberto Carter MD [address] [place] [id number] PCP - General Internal Medicine 03/01/24 documented as of this encounter
--- OUTSIDE RECORDS SUMMARY | 2024-12-04 17:54 | XMS_ITS | Clinical Summary ---
Author Organization [facility] Address [address] [facility] [address] [place] [phone] Phone Care Team Providers Care Fabricator Foam Rubber Name Role Phone Israel Cheng MD Primary Care Provider + Allergies Active Allergy Reactions Criticality Noted Date Comments Sulfa (Sulfonamide Antibiotics) 10/12 Sulfamethoxazole-Trimethoprim 2021 Medications alendronate (FOSAMAX) 70 MG tablet Take 70 mg by mouth. 3 Active ALPRAZolam (XANAX) 0.5 MG tablet Take 0.5 mg by mouth. Active amitriptyline (ELAVIL) 10 MG tablet Take 10 mg by mouth. 3 Active atorvastatin (LIPITOR) 40 MG tablet Take 40 mg by mouth daily. Active buPROPion (WELLBUTRIN SR) 100 MG SR 12 hr tablet Take 100 mg by mouth. Active donepeziL (ARICEPT) 10 MG tablet Take 10 mg by mouth. Active DULoxetine (CYMBALTA) 20 MG capsule Take 20 mg by mouth 2 (two) times a day. 3 Active escitalopram oxalate (LEXAPRO) 10 MG tablet Take 10 mg by mouth daily. Active multivitamins-m inerals-folic zjoq-nruursa-if tein (COMPLETE SENIOR) 0.4 mg-300 mcg- 250 mcg Tab Take by mouth. Activ e methenamine (HIPREX) 1 gram tablet Take 1 g by mouth. Active progesterone (PROMETRIUM) 100 mg capsule Take 100 mg by mouth. Active scopolamine (TRANSDERM-SCOP ) 1 mg over 3 days 1 patch. 3 Active Lactobac. rhamnosus GG-inulin 20 billion cell -200 mg Cap Active insulin aspart U-100 (NOVOLOG U-100 INSULIN ASPART) 100 unit/mL injection vial Novolog U-100 Insulin aspart 100 unit/mL subcutaneous solution Active BASAGLAR KWIKPEN U-100 INSULIN 100 unit/mL (3 mL) InPn injection pen Active glucagon (GLUCAGEN) 1 mg injection Glucagon Emergency Kit 1 mg solution for injection Active folic acid (FOLVITE) 1 MG tablet Take 1 mg by mouth. 3 Active estradioL (VIVELLE-DOT) 0.05 mg/[address] 1 patch onto the skin. 3 Active magnesium chloride 64 mg TbEC Take 1,066 mg by mouth daily. Active cranberry-vitam in C-mannose 250-30-50 mg Chew Take by mouth. Activ e omega-3 acid ethyl esters (LOVAZA) 1 gram capsule Take 2 g by mouth 2 (two) times a day. Active pilocarpine (SALAGEN) 5 MG tabletIndicatio ns:Sjogren's syndrome with dental involvement TAKE 2 TABLETS BY MOUTH 3 TIMES A DAY 540 tablet 5 Active Active Problems Problem Noted Date Diagnosed Date Sjogren's syndrome 05/12/2023 Assessment & Plan (05/12/2023 3:13 PM EST): Biopsy-proven Sjogren syndrome with pathology generating a focus score of 1.3. This is consistent with a salivary component of Sjogren syndrome. She also has dry eyes, dry mouth,vaginal dryness and ageusia. Her symptoms are much improved on Biotene and pilocarpine. She does not appear to have any other systemic symptoms to suggest an active autoimmune condition, other than Sjogren syndrome Will send her for complement levels. Her previous autoimmune workup was completely negative in 2020, although she did have a minimally positive ROSAS with a titer of 1: 80. Advised her to get regular eye and dental exams. Family History Medical History Relation Comments No Known Problems Brother Cancer Father No Known Problems Mother No Known Problems Sister Relation Status Comments Brother Alive Father Mother Alive Sister Alive Social History Tobacco Use Types Packs/Day Years Used Date Smoking Tobacco: Never Smokeless Tobacco: Never Tobacco Cessation:Counseling Given: Not Answered Alcohol Use Standard Drinks/Week Comments Not Currently 0 (1 standard drink = 0.6 oz pur e alcohol) Education Answer Date Recorded Are you interested in more education? Not on gerard e 07/08/2022 Are you concerned about learning? Not on file 07/08/2022 No 07/08/2022 No 07/08/2022 Digital Access Answer Date Recorded No 08/06/2022 No 08/06/2022 Reliable internet access at home? Not on file 08/06/2022 Device with a working camera? Not on file Comments Unknown Sex and Gender Information Value Date Recorded Sex Assigned at Female 08/29/2019 1:40 PM EDT Legal Sex Female 1:32 PM EDT Gender Identity Female 08/29/2019 1:40 PM EDT Sexual Orientation Straight 08/29/2019 1: 40 PM EDT Last Filed Vital Signs Vital Sign Reading Time Taken Comments Blood Pressure 150/86 04/17/2023 3:58 PM EST Pulse 63 04/17/2023 3:58 PM EST Temperature 36.6 C (97.8 F) 09/15/2020 8:08 AM EDT Respiratory Rate 16 01/15/2020 2:19 PM EST Oxygen Saturation 97% 04/17/2023 3:58 PM EST Inhaled Oxygen Concentration - - Weight 65.3 kg (144 lb) 04/17/2023 3:58 PM EST Height 172.7 cm (5' 8 ) 04/17/2023 3:58 PM EST Body Mass Index 21.9 04/17/2023 3:58 PM EST Plan of Treatment Health Maintenance Due Date Last Done Comments LIPID PANEL 1964 DEPRESSION SCREENING 1976 HEPATITIS C SCREENING 1982 HIV ONE-TIME SCREENING (18-65 YEARS) 1982 PAP SMEAR 1985 MAMMOGRAM 2004 COLOGUARD 2009 COLONOSCOPY 2009 COLORECTAL CANCER SCREENING 2009 FIT TEST 2009 FOBT 2009 SIGMOIDOSCOPY 2009 VIRTUAL COLONOSCOPY 2009 Adult Td,Tdap Booster 10/22/2015 10/21/2005 INFLUENZA VACCINE (#1) 2024 , 12/17/2021, 12/25/2020, Additional history exists COVID-19 VACCINE (2024- season) 2024 01/07/2023, 12/29/2022, 12/10/2022, Additional history exists RSV VACCINE (1 - 1-dose 75+ series) 05/27/2039 ZOSTER VACCINES Completed 07/19/2018, 05/09/2018 PNEUMOCOCCAL VACCINES (50+ years) Completed 03/16/2022, 01/22/2016, 09/20/2006 SMOKING STATUS SCREENING (Once After 26 Yrs) Completed 04/17/2023 HEPATITIS A VACCINES Aged Out No long er eligible based on patient's age to complete this topic HIB VACCINES Aged Out No longer eligi ble based on patient's age to complete this topic MENINGOCOCCAL VACCINES (ACWY) Aged Out No longer eligible based on patient's age to complete this topic MENINGOCOCCAL VACCINES (B) Aged Out N o longer eligible based on patient's age to complete this topic Medical Devices Not on file Insurance KELLY PPO KELLY PPO Member Subscriber Plan / Payer ( fective 2016-Present) Name:Sahara Otoole Relation to Subscriber:Spouse Name:JAYLINVeritoTODD Date of :1962 Address: [place] [address] Payer ID:[id number] ([facility]) Type:PPO Address: [address] [place] [id number] [address] [place] CIGNA PPO ESTHER MARTINEZ CIGDANE PPO ESTHER MARTINEZ CIGDANE PPO Care Teams Fabricator Foam Rubber Relationship Specialty Start Date End Date Israel Cheng MD [address] [place] [address] [email or web address] - General Internal Medicine 04/17/23 Additional Source Comments The information contained in this document represents components of the legal health record. It is not the complete legal health record.[facility]
--- OUTSIDE RECORDS SUMMARY | 2024-12-04 17:54 | XMS_ITS | Clinical Summary ---
Author Organization [facility], Address [address] [place] [address] Phone Care Team Providers Care Teacher Kindergarten Name Role Phone Unavailable Primary Care Provider Unavailabl e Social History Tobacco Use Types Packs/Day Years Used Date Smoking Tobacco: Never Assessed Comments Unknown Sex and Gender Information Value Date Recorded Sex Assigned at Not on file Legal Sex Female 4:58 PM EST Gender Identity Not on file Sexual Orientation Not on file Plan of Treatment Health Maintenance Due Date Last Done Comments Breast Cancer Screening 1965 Colorectal Cancer Screening: Annual FOBT 2013 Colorectal Cancer Screening: Colonoscopy 2013 Colorectal Cancer Screening: Sigmoidoscopy 2013 Pneumococcal Vaccine: 50+ Ye ars (1 of 1 - PCV) 2014 Diabetes: Hemoglobin A1C 05/27/2022 Diabetes: Ophthalmology Exam 05/27/2022 Diabetes: Pedal Pulse Checked 05/27/2022 Diabetes: Sensory Foot Exam 05/27/2022 Diabetes: Visual Foot Exam 05/27/2022 Influenza Vaccine (#1) 2024 Hepatitis B Vaccine Aged Out No longe r eligible based on patient's age to complete this topic Insurance [employer]
== END 2024-12-04 16:12 | disposition home or self-care (01) ==
LOC: HO.HSM 15:39
PROVIDERS: PCP Internal Medicine; Visit Provider Psychiatry & Neurology Neurology
DX: G31.84 Mild cognitive impairment of uncertain or unknown etiology (principal); R56.9 Unspecified convulsions; F32.A Depression, unspecified
CPT/HCPCS: 99214